=== PATIENT | male | born 1980 | race Caucasian/White ===

== ENCOUNTER → 2016-09-04 | Outpatient (CLI) | payer OTHER ==
[~2016-09-04] MED LIST: BACLOFEN10 MG PO; CUBICIN RF500 MG IV; HYDRALAZINE HC100 MG PO; NAPROXEN375 MG PO; NORCO1 TAB 10/3 PO; NORVASC10 MG PO; RIFAMPIN300 M1 PO; TOBREX 0.3% OP3.5 GM OD; VITAMIN D31000 UNIT PO; ZOFRAN ODT4 MG PO
--- NOTE | ~2016-09-04 | EKG ---
PATIENT: CHRISTINA RODRIGUEZ UNIT #: [id number] Ventricular Rate: 103 BPM Atrial Rate: 103 BPM P-R Interval: 134 ms QRS Duration: 92 ms Q-T Interval: 312 ms QTC Calculation(Bezet): 408 ms P [place]: 57 degrees Calculated R [place]: 51 degrees Calculated T [place]: 8 degrees Diagnosis Line: Sinus tachycardia Diagnosis Line: Nonspecific T wave abnormality Diagnosis Line: Otherwise normal ECG Diagnosis Line: When compared with ECG of 23-NOV-2013 12:49, Diagnosis Line: No significant change was found Diagnosis Line: Confirmed by LEEROY JUNG MD ([id number]) on 09/06/2016 Diagnosis Line: 10:29:02 AM INTERPRETING MD: ERICH STEELE
== END | disposition home or self-care (01) ==
LOC: CECH 13:22
DX: C64.9 Malignant neoplasm of unspecified kidney, except renal pelvis (principal)
CPT/HCPCS: 93005; 93306